=== PATIENT | female | born 1955 | race Caucasian/White ===

== ENCOUNTER → 2016-08-04 | Outpatient (CLI) | payer OTHER ==
[~2016-08-04] MED LIST: AMLO5TAB2 PO; MULT-223 PO; OXYC5TAB PO; RANI150T3 PO
--- NOTE | 2016-08-04 16:29 | MAMMOGRAPHY REPORT ---
BILATERAL DIGITAL SCREENING MAMMOGRAM WITH CAD: 08/04/2016 CLINICAL HISTORY: Routine screening. Patient has no complaints. TECHNIQUE: Bilateral CC and MLO views were obtained. Current study was also evaluated with a Comput er Aided Detection (CAD) system. COMPARISON: Comparison is made to exams dated: 02/03/2016 mammogram, 07/25/2015 ultrasound, 07/25/2015 mammogram, 04/24/2015 mammogram, 03/01/2014 mammogram, and 02/28/2013 mammogram - [facility]. BREAST COMPOSITION: There are scattered areas of fibroglandular density in both breasts. FINDINGS: A nodular asymmetry in the lateral left breast appears very similar to the 02/28/2013 and 02/25/2012 mammograms, most likely normal overlapping tissue. There is also a stable asymmetry in t he medial, middle one third of the right breast on the CC view and stable nodularity in the anterior lateral left breast. Scattered benign-appearing microcalcifications. No new suspicious mass, arch itectural distortion or cluster of microcalcifications is seen. IMPRESSION: ACR BI-RADS CATEGORY 1: NEGATIVE There is no mammographic evidence of malignancy. A 1 year screening mammogram is recommended. The p atient will receive written notification of the results. Approximately 10% of breast cancers are not detected with mammography. A negative mammographic repor t should not delay biopsy if a clinically suggestive mass is present. Milla Ontiveros M.D. ay/:08/04/2016 15:52:34 Banjo Repairer: Bárbara BRICEÑO)(Gladys), [facility] letter sent: Normal 1/2 BI-RADS Code: ACR BI-RADS Category 1: Negative
== END | disposition home or self-care (01) ==
LOC: C.MAMM 11:09
PROVIDERS: ATTEND Family Medicine
DX: Z12.31 Encounter for screening mammogram for malignant neoplasm of breast (principal)

== ENCOUNTER → 2016-08-18 | Outpatient (CLI) | payer OTHER ==
--- NOTE | 2016-08-18 08:27 | DIAGNOSTIC IMAGING REPORT ---
RIGHT KNEE 3 VIEWS CLINICAL HISTORY: Right knee pain COMPARISON: None. DISCUSSION: No acute fractures are visualized. 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 There is no significant joint effusion. Minimal irregularity of the medial tibial plateau is felt to be chronic. IMPRESSION: Mild degenerative change. No acute fractures. Minor irregularity of the medial tibial plateau, likely chronic Electronically signed by: Jonnie Payne M.D. 08/18/2016 8:25 AM Dictated Date/Time: 08/18/2016 8:24 AM
--- NOTE | 2016-08-18 08:44 | DIAGNOSTIC IMAGING REPORT ---
RIGHT POPLITEAL ULTRASOUND CLINICAL HISTORY: Right knee pain COMPARISON STUDY: Conventional radiographic study dated 09-02 FINDINGS: There are 2 tiny popliteal cysts measuring 9 mm and 13 mm respectively. There is a suspected suprapatellar joint effusion. IMPRESSION: 1. Joint effusion 2. 2 tiny popliteal cysts. Electronically signed by: Jonnie Payne M.D. 08/18/2016 8:43 AM Dictated Date/Time: 08/18/2016 8:42 AM
== END | disposition home or self-care (01) ==
LOC: C.ULTR 08:04
PROVIDERS: ATTEND Physician Assistant
DX: M25.561 Pain in right knee (principal); M25.461 Effusion, right knee

== ENCOUNTER → 2016-11-11 | Outpatient (CLI) | payer OTHER ==
--- NOTE | 2016-11-11 11:09 | DIAGNOSTIC IMAGING REPORT ---
LOWER EXT JOINT WITHOUT CLINICAL HISTORY: RIGHT KNEE INTERNAL DERANGEMENT pain. Edema. TECHNIQUE: MRI multi axial acquisition COMPARISON STUDY: None FINDINGS: Signal characteristics the osseous structures are unremarkable. No significant bone marrow replacing process. Cruciate ligaments are intact. The medial and lateral collateral ligaments are intact. The medial as well as lateral meniscus appears to be unremarkable. Mild chondromalacia patella. Medial lateral patellar retinaculum are intact. The femoral groove is somewhat shallow. IMPRESSION: 1. Small joint effusion. 2. Mild chondromalacia patella. 3. Patellofemoral groove is somewhat shallow The above report was generated using voice recognition software. It may contain grammatical, syntax or spelling errors. Electronically signed by: Niall Pina M.D. 11/11/2016 11:07 AM Dictated Date/Time: 11/11/2016 11:01 AM
== END | disposition home or self-care (01) ==
LOC: C.OPENMRI 08:44
PROVIDERS: ATTEND Family Medicine
DX: M23.91 Unspecified internal derangement of right knee (principal)

== ENCOUNTER → 2017-08-06 | Outpatient (CLI) | payer OTHER ==
--- NOTE | 2017-08-09 08:09 | MAMMOGRAPHY REPORT ---
BILATERAL DIGITAL SCREENING MAMMOGRAM TOMOSYNTHESIS WITH CAD: 08/06/2017 CLINICAL HISTORY: Routine screening. Patient has no complaints. TECHNIQUE: Breast tomosynthesis in addition to standard 2D mammography was performed. Current study was also evaluated with a Computer Aided Detection (CAD) system. COMPARISON: Comparison is made to exams dated: 08/04/2016 mammogram, 02/03/2016 mammogram, 07/25/2015 u ltrasound, 04/24/2015 mammogram, 07/25/2015 mammogram, and 03/01/2014 mammogram - [facility]. BREAST COMPOSITION: There are scattered areas of fibroglandular density in both breasts. FINDINGS: No suspicious masses, calcifications, or areas of architectural distortion are noted in ei ther breast. There has been no significant interval change compared to prior exams. Bilateral asymme tries and scattered bilateral benign-appearing calcifications are not significantly changed. IMPRESSION: ACR BI-RADS CATEGORY 2: BENIGN There is no mammographic evidence of malignancy. A 1 year screening mammogram is recommended. The pa tient will receive written notification of the results. Approximately 10% of breast cancers are not detected with mammography. A negative mammographic report should not delay biopsy if a clinically suggestive mass is present. Shikha Dumont M.D. ah/:08/06/2017 12:23:01 Stockroom Worker: Dai BRICEÑO)(M), [facility] letter sent: Normal 1/2 BI-RADS Code: ACR BI-RADS Category 2: Benign
== END | disposition home or self-care (01) ==
LOC: C.MAMM 10:04
PROVIDERS: ATTEND Family Medicine
DX: Z12.31 Encounter for screening mammogram for malignant neoplasm of breast (principal)